=== PATIENT | male | born 1980 | race African-American/Black ===

== ENCOUNTER 2018-11-29 01:14 | Emergency (ER) | payer SELFPAY ==
--- NOTE | 2018-11-29 01:36 | NUR ---
PATIENT LEFT WITHOUT BEING TRIAGED OR SEEN BY [facility]
== END 2018-11-29 01:38 | disposition left against medical advice (07) ==
LOC: ER 01:30
DX: Z53.21 Procedure and treatment not carried out due to patient leaving prior to being seen by health care provider (principal)